=== PATIENT | female | born 1965 | race Caucasian/White ===

== ENCOUNTER → 2016-11-01 | Outpatient (CLI) | payer OTHER ==
--- NOTE | 2016-11-01 17:02 | REPMRS ---
Patient History The patient states she has not had a clinical breast exam in over a year. Family history of prostate cancer in father at age 78 and breast cancer in maternal cousin at age 40. Priors done at [facility] Digital Mammo Screening Bilat: November 01, 2016 - Exam #: [id number] Bilateral CC and MLO view(s) were taken. Technologist: Shonda Avila, Technologist FINDINGS: There are scattered fibroglandular densities. There has been no change in the appearance of the mammogram from the prior studies. There is a mild amount of residual fibroglandular tissue which is fairly symmetric. There is no interval development of dominant mass, architectural distortion, or clustered microcalcification suggestive of malignancy. ASSESSMENT: BI-RADS/ACR category 1 mammogram. Negative. Recommendation Routine screening mammogram in 1 year (for women over age 40). This mammogram was interpreted with the aid of an FDA-approved computer-aided dectection system. Electronically Signed By: Martin Snow MD 11/01/16 [id number]
== END ==
LOC: M RAD 15:55
PROVIDERS: ATTEND Internal Medicine
DX: Z12.31 Encounter for screening mammogram for malignant neoplasm of breast (principal)

== ENCOUNTER 2018-08-27 09:20 | Inpatient (IN) | payer OTHER ==
--- NOTE | 2018-08-21 22:37 | HPE ---
DATE OF ADMISSION: 08/27/2018 CHIEF COMPLAINT: Cervical degenerative disk disease and radiculopathy. HISTORY OF PRESENT ILLNESS: This is a pleasant 52-year-old female with progressively worsening neck and left upper extremity pain. She has failed to improve with conservative treatment. She has elected for surgery for her continued symptoms. She has pain with her activities of daily living. Magnetic Resonance Imaging (MRI) of the cervical spine showed degenerative disk disease and impingement of the nerve roots at C5-6 and 6-7. She has consented for an anterior cervical decompression and fusion at C5-[address] Anderson Tellez. No medical optimization was requested. ALLERGIES: AMBIEN, VICODIN, BACTRIM CURRENT MEDICATIONS: - omeprazole 20 mg a day - ibuprofen 100 mg three times a day as needing - gabapentin 800 mg three times a day - vitamin D3 5000 units a day - Lovaza once a day - ferrous sulfate 325 mg a day - cetirizine 10 mg a day - metformin 500 mg twice a day - oyster shell calcium with D 500 mg every day - multivitamin every day - biotin 7500 mcg every day - Flexeril 10 mg as needed - Lidoderm patch 5% as needed - Voltaren gel as needed PAST MEDICAL HISTORY INCLUDES: Polycystic ovary syndrome (PCOS), acid reflux and iron-deficiency anemia. PAST SURGICAL HISTORY INCLUDES: Lymph node removal, bone spur removal from the right heel and neck surgery on the right, Watson-en-Y gastric bypass. SOCIAL HISTORY: She does work on [employer]. She does not smoke and rarely drinks alcohol. FAMILY HISTORY: Noncontributory. REVIEW OF SYSTEMS: This patient denies chest pain, heart palpitations, cough, wheezing, difficulty breathing and shortness of breath. She denies abdominal pain, nausea, vomiting, diarrhea or constipation. She denies recent upper respiratory infection or urinary tract infection symptoms. She does complain of persistent neck pain and left upper extremity radiculopathy. PHYSICAL EXAMINATION: General: She is well-nourished, well-developed in no acute distress, alert female. She has pain and stiffness in the neck with decreased range of motion and radiculopathy in the left upper extremity. Vital signs: She is 5 feet eight, weighs 260 pounds with a temperature of 98.8. Neck was supple without adenopathy or jugular venous distension. There were no carotid bruits appreciated upon auscultation. Lungs were clear to auscultation without rales or wheeze throughout. Heart: Regular rate and rhythm. Abdomen: Bowel sounds were present. Extremities: Examination of the neck revealed intact skin. LABORATORY DATA: None requested. IMPRESSION: Cervical degenerative disk disease at C5-6 and 6-7with chronic left upper extremity radiculopathy. PLAN: Consented for anterior cervical decompression and fusion at C5-[address] Anderson Tellez.
[2018-08-27] VITALS (7 sets, daily range): BP systolic 139–175; BP diastolic 78–95
[~2018-08-27] VITALS: Ht 170.2 cm; Wt 117.9 kg
[~2018-08-27 09:20] MED LIST: BIOT7500 PO; CALC-235 PO; CETI10CH PO; CYCL10TA PO; FERR325T3 PO; GABA800T4 PO; GABAPENTIN 400 MG CAP PO ONE; GLUC500T PO; IBUP1TAB7 PO; LIDO5DIS41 TD; LIDOCAINE 1% MDV 20ML VIAL SQ PRN; LOVA1CAP17 PO; LR 1,000 ML IV ONE; MULT1TAB10 PO; OMEP20CA3 PO; PERCOCET 5MG/325MG TAB PO ONE; VITA100067 PO; VOLT1GEL15 TD; ceFAZolin SOD 1 GM in D5W MINI-BAG PLUS 50 ML IV ONE
[2018-08-27 09:56] LABS: HEMATOCRIT 40.9 % (36.0-47.0); HEMOGLOBIN 13.1 g/dl (12.0-15.5); MEAN CORPUSCULAR HEMOGLOBIN 26.5 pg (27.0-33.0); MEAN CORPUSCULAR VOLUME 82.8 fl (80.0-96.0); PLATELET COUNT, AUTOMATED 331 10^3/uL (150-450); RED BLOOD COUNT 4.94 10^6/uL (4.00-5.40); WHITE BLOOD COUNT 9.8 10^3/uL (4.0-10.0)
[2018-08-27] MEDS ORDERED: LIDOCAINE W/EPINEPHRINE 1% 20ML VIAL As Ordered ONE (09:58)
[2018-08-27] MEDS ORDERED: BACITRACIN PWD 50,000 UNITS VIAL As Ordered ONE (09:58)
[2018-08-27] MEDS ORDERED: THROMBIN SOLN 20,000 UNITS KIT As Ordered ONE (09:58)
[2018-08-27] MEDS ORDERED: methylPREDNISolone 500 MG VIAL (J2930) As Ordered ONE (09:59)
[2018-08-27 10:14] LABS: URINE PREG TEST NEGATIVE (NEGATIVE)
[2018-08-27] MEDS ORDERED: LIDOCAINE 2% INJ 100 MG/5 ML SDV (FOR ANES.) As Ordered ONE (13:29)
[2018-08-27] MEDS ORDERED: MIDAZOLAM INJ 2 MG/2 ML VIAL (J2250) As Ordered ONE (13:29)
[2018-08-27] MEDS ORDERED: dexameTHASONE 4 MG/ML 1ML VIAL (J1100) As Ordered ONE (13:29)
[2018-08-27] MEDS ORDERED: SUGAMMADEX SODIUM 500 MG/5 ML VIAL (BRIDION) As Ordered ONE (13:29)
[2018-08-27] MEDS ORDERED: fentaNYL 250 MCG/5 ML INJECTION (J3010) As Ordered ONE (13:29)
[2018-08-27] MEDS ORDERED: ePHEDrine SULFATE 25 MG/5 ML(5MG/ML) SYRINGE As Ordered ONE (13:29)
[2018-08-27] MEDS ORDERED: ONDANSETRON 4MG/2ML VIAL (J2405) As Ordered ONE (13:29)
[2018-08-27] MEDS ORDERED: PROPOFOL 200 MG/20 ML VIAL As Ordered ONE (13:29)
[2018-08-27] MEDS ORDERED: ROCURONIUM BROMIDE 50 MG/5 ML VIAL As Ordered ONE (13:29)
[2018-08-27] MEDS ORDERED: PHENYLephrine HCL 500 MCG/5 ML (100MCG/ML) SYRINGE (J2370) As Ordered ONE (13:29)
[2018-08-27] MEDS ORDERED: LR 1,000 ML IV SCH (14:00)
[2018-08-27] MEDS ORDERED: PERCOCET 5MG/325MG TAB PO PRN ×2 (14:00→14:15)
[2018-08-27] MEDS ORDERED: fentaNYL 100 MCG/2 ML INJECTION (J3010) IV PRN (14:00)
[2018-08-27] MEDS ORDERED: ONDANSETRON 4MG/2ML VIAL (J2405) IV PRN (14:00)
[2018-08-27] MEDS ORDERED: MORPHINE 10 MG/ML 1ML VIAL (J2270) IV PRN (14:15)
[2018-08-27] MEDS ORDERED: PROMETHAZINE INJ 25 MG/ML VIAL (J2550) IV PRN (14:15)
[2018-08-27] MEDS ORDERED: HYDROMORPHONE HCL 0.5 MG/ 0.5 ML SYRINGE (J1170 PER 1) IV PRN (14:15)
[2018-08-27] MEDS ORDERED: CYCLOBENZAPRINE 10 MG TAB PO PRN (14:15)
[2018-08-27] MEDS ORDERED: D5W/LR 1,000 ML IV SCH (14:15)
[2018-08-27] MEDS ORDERED: METF-881 PO (14:55)
[2018-08-27] MEDS: PERCOCET 5MG/325MG TAB PO PRN (15:07)
--- NOTE | 2018-08-27 15:18 | REP ---
Clinical: Intraoperative positioning. Technique: Portable cross-table view of the cervical spine. Findings: Endotracheal tube and nasogastric tube are identified. Probe via anterior approach at the C4-5 level. Electronically Signed by Monico Tran MD 08/27/2018 03:09 P
--- NOTE | 2018-08-27 15:25 | RO ---
DATE OF PROCEDURE: 08/27/2018 PREOPERATIVE DIAGNOSIS: Left upper extremity radiculopathy secondary to disk bulge at C5-6 and degenerative changes in the cervical spine. POSTOPERATIVE DIAGNOSIS: Left upper extremity radiculopathy secondary to disk bulge at C5-6 and degenerative changes in the cervical spine. PROCEDURE PERFORMED: Includes anterior cervical decompression and fusion procedure including removal of disk material posterior longitudinal ligament and the decompression of the thecal sac and nerve roots, preparation of endplate. Application of structural allograft for spine surgery, application of the anterior cervical instrumentation C5-6. Modifier 22 appended to this procedure for the following several leaves 1. The patient's body mass index of 41 resulted in increased time required to accomplish the surgical procedure. 2. The patient's history of previous neck surgery for lymph node dissection resulted in additional time needed to be the procedure because of was significantly scarred operative field. 3. The patient past history gastric bypass surgery. There seemed to be increased scarring and adhesions in the cervical field, could be related to reflux or other issues. SURGEON: Dr. Tellez ARCHITECT INTERNSHIP: Matt Knight, physician farm assistant. ANESTHESIA: General endotracheal. ESTIMATED BLOOD LOSS: Less than 30 mL replaced with crystalloid. COMPLICATIONS: No complications. INDICATION: This is a 52-year-old woman with significant left upper extremity radicular discomfort and MRI evidence of disk disease. She has failed conservative management and elected for operative intervention. Consent reviewed in detail including pepe discussion of the pathology involved the procedure proposed, alternatives including doing nothing and risks including not limited to pain, failure, need for additional surgery, swallowing trouble, hoarseness, nerve injury, paralysis, infection and other issues. Next, the patient also had significant spondylosis at the C6-7 level. This level was not addressed. It was felt the patient has no motion there with a bridging osteophyte and no significant spinal stenosis or foraminal stenosis at C6-7. Next, components used included the [employer] skyline plate 12 mm with 15 mm 4-5 screws times four. Structural graft size 5 x 7. OPERATIVE COURSE: Identified in the holding area, site side verified brought to the operating room, anesthesia was administered. Mr. Mckeonkevin assisted with positioning this included a bump between the shoulder blades taking shoulders at the side, applying head halter traction 7 pounds. Once I and the premium note interest calculator clerk were comfortable with the patient's positioning she was sterilely prepped and draped in usual fashion for exposure of cervical spine. Mr. Knight stood on the patient's left side. I stood on the patient's right side. The incision was outlined with a marking pen based on palpation of landmarks in the midportion of the cervical spine. The incision was infiltrated with 1% lidocaine with epinephrine and then I made the incision using a 10 blade knife. I did utilize 3.5 loupe magnification for the procedure. Next, we dissected down to the surface of the platysma. We encountered significant scarring from the subdermal layer down. I elevated the platysma utilized bipolar cautery and divided with tenotomy scissors. Next we continued to encounter significant fibrotic and scar tissue identified the omohyoid. We continued the dissection superiorly to the omohyoid bipolar cautery was utilized for hemostasis. Eventually we were able to identify the carotid sheath and continued dissection to the surface of the prevertebral fascia which was elevated to the prevertebral fascia seem to be somewhat thickened. It was elevated. Mr. Knight utilized S retractors to help retract the prevertebral fascia. I exposed disk annulus complex. I placed a bayonet spinal needle and we obtained a cross-table lateral. We erred on placement of the spinal needle at that time because of the patient's body habitus so that we would be able to correctly predict which level we were had obtained. A cross-table lateral x-ray revealed the spinal needle was at the 4-5 disk space. Next, based on this position. We marked the vertebral body inferior to the spinal needle with a hot knife and then removed the spinal needle and then continued the dissection exposing the C5-6 level. Next, longus coli muscle was elevated at its medial borders and we were able to placed the shadow line retractor exposing. Distraction pins were placed across C5-6 and we appreciated significant motion at C5-6. Annulus was opened with an 11 blade knife. Disk material was removed using pituitaries, endplates removed using 3-0 curved Prolene curette. Once this was accomplished I then utilized the oval bur to further implement the diskectomy and removing portions of the inferior and superior endplate continuing dissection posteriorly towards the uncinate processes which were hypertrophic and exposing the posterior longitudinal ligament. Next, once this was accomplished I did utilize a 5 x 7 rasp to further to prepare endplate and we placed a 5 x7 sound which seemed to fit appropriately. Next, at this stage, I elevated the PLL using curved 4-0 curette. I then utilized the #1 Kerrison followed by #2 Kerrison to remove the posterior longitudinal ligament expose the thecal sac. There did seem to be significant hard disk material posteriorly and especially to the left. Next, once this was removed carefully using Kerrison's, we inspected. No active bleeding was appreciated. We irrigated. Next, I again rasped further contour the endplates and then I utilized 5 x 7 to again predict that the correct side we obtained a 5 x 7 graft. We soak the graft in bacitracin solution and then installed the graft. It was tamped into place. I then removed the distraction pins and plugged the pin holes using bone wax. Next, Mr. Knight utilized S retractors to help expose the anterior osteophyte which I then removed using the oval bur contouring the anterior vertebral bodies to receive the plate. Next, once this was accomplished I selected the size 12 mm plate which fit appropriately and I drilled and placed the appropriate 15 mm screws which were secured and the locking device engaged. Next we obtained a second cross-table lateral x-ray which reflected the screws at the C5 level placed appropriately, somewhat limited due to body habitus but adequate. Next, once this was accomplished we verified the locking devices were engaged. We irrigated including irrigation with concentrated bacitracin. All retractors were removed. Platysma was reapproximated with interrupted stitch, deep dermis with interrupted stitch and Monocryl. Dermabond utilized on skin. Rigid cervical collar placed. The patient was then extubated and moved to the recovery in good condition. For further details please refer to the medical record.
[2018-08-27] MEDS ORDERED: HumaLOG INSULIN (NovoLOG) PER UNIT SC SCH ×2 (17:30→21:00)
[2018-08-27] MEDS: GABAPENTIN 400 MG CAP PO SCH ×2 (17:35→20:38)
[2018-08-28 02:00] VITALS: BP 158/84
[2018-08-28] MEDS: PERCOCET 5MG/325MG TAB PO PRN (02:10)
[2018-08-28 06:00] VITALS: BP 124/69
[2018-08-28] MEDS: GABAPENTIN 400 MG CAP PO SCH (08:42)
[2018-08-28] MEDS ORDERED: CETIRIZINE (ZyrTEC) 10 MG TAB PO SCH (09:00)
[2018-08-28] MEDS ORDERED: OMEPRAZOLE 20 MG CAP PO SCH (09:00)
[2018-08-28] MEDS ORDERED: METAMUCIL (PSYLLIUM) PACKET PO SCH (09:00)
[2018-08-28] MEDS ORDERED: metFORMIN XR 500MG TAB *GLUCOPHAGE XR PO SCH (09:00)
[2018-08-28 10:00] VITALS: BP 133/73
--- NOTE | 2018-08-30 12:14 | DSES ---
DATE OF ADMISSION: 08/27/2018 DATE OF DISCHARGE: 08/28/2018 DISCHARGE DIAGNOSIS: Cervical degenerative disk disease and left upper extremity radiculopathy status post anterior cervical decompression and fusion (ACDF) of C5-6. HISTORY: This is a 52-year-old female with progressively worsening cervical degenerative disk disease and pain with left upper extremity radiculopathy. She had failed to improve with conservative treatment. She elected for surgery for her continued symptoms. PROCEDURE PERFORMED: Anterior cervical decompression and fusion at C5-6. HOSPITAL COURSE: The patient was admitted on the day of surgery and underwent ACDF of C5-6 that was without complications. Afterwards, her hospital course was without complications. On the day of discharge, the patient was doing well. She will wear an [place] collar for approximately 30 days postoperatively. She will use oral medications for pain control. Also, she will follow in the office in 2 weeks for wound check.
== END 2018-08-28 12:45 | disposition home or self-care (01) | DRG 473 ==
LOC: M OR 09:20 → M MS5PR 15:15
PROVIDERS: ADMIT Orthopaedic Surgery; ATTEND Orthopaedic Surgery
PROC: 0RB30ZZ Excision of Cervical Vertebral Disc, Open Approach (ICD-10-PCS; 2018-08-27)
PROC: 0RG10K0 Fusion of Cervical Vertebral Joint with Nonautologous Tissue Substitute, Anterior Approach, Anterior Column, Open Approach (ICD-10-PCS; principal; 2018-08-27 11:00)
DX: M50.122 Cervical disc disorder at C5-C6 level with radiculopathy (principal); M50.123 Cervical disc disorder at C6-C7 level with radiculopathy; E28.2 Polycystic ovarian syndrome; K21.9 Gastro-esophageal reflux disease without esophagitis; D50.9 Iron deficiency anemia, unspecified; Z79.84 Long term (current) use of oral hypoglycemic drugs; Z79.899 Other long term (current) drug therapy; Z98.84 Bariatric surgery status

== ENCOUNTER 2019-02-07 20:26 | Emergency (ER) | payer OTHER ==
[~2019-02-07] VITALS: Ht 170.2 cm; Wt 118.2 kg
[~2019-02-07 20:26] MED LIST changes: -GABAPENTIN 400 MG CAP PO ONE; -LIDOCAINE 1% MDV 20ML VIAL SQ PRN; -LR 1,000 ML IV ONE; +METF-881 PO; -OMEP20CA3 PO; +OMEP20CA4 PO; -PERCOCET 5MG/325MG TAB PO ONE; -ceFAZolin SOD 1 GM in D5W MINI-BAG PLUS 50 ML IV ONE
--- NOTE | 2019-02-07 22:00 | REPVR ---
EXAM: US Duplex Bilateral Lower Extremity Veins EXAM DATE/TIME: 02/07/2019 9:44 PM CLINICAL HISTORY: 53 years old, female; Pain; Leg, upper; Bilateral TECHNIQUE: Imaging protocol: Real-time duplex ultrasound of the Bilateral Lower Extremities with 2-D gomez scale, color Doppler flow and spectral waveform analysis with image documentation. Complete exam focused on the bilateral lower extremity veins. COMPARISON: No relevant prior studies available. FINDINGS: Right deep veins: Unremarkable. The common femoral, femoral, proximal profunda femoral and popliteal veins are patent without thrombus. Normal Doppler waveforms. Normal compressibility and/or augmentation response. Right superficial veins: Saphenofemoral junction is patent without thrombus. Left deep veins: Unremarkable. The common femoral, femoral, proximal profunda femoral and popliteal veins are patent without thrombus. Normal Doppler waveforms. Normal compressibility and/or augmentation response. Left superficial veins: Saphenofemoral junction is patent without thrombus. Soft tissues: Unremarkable. IMPRESSION: No sonographic evidence of deep vein thrombosis. Electronically signed by: Matt Wren On 02/07/2019 22:00:11 PM
[2019-02-07 23:06] VITALS: BP 155/87
== END 2019-02-07 23:14 | disposition home or self-care (01) ==
LOC: M ED 20:26
DX: M16.0 Bilateral primary osteoarthritis of hip (principal); M17.0 Bilateral primary osteoarthritis of knee; M19.071 Primary osteoarthritis, right ankle and foot; M19.072 Primary osteoarthritis, left ankle and foot; M76.811 Anterior tibial syndrome, right leg; M76.812 Anterior tibial syndrome, left leg; M77.32 Calcaneal spur, left foot; Z88.2 Allergy status to sulfonamides; Z88.5 Allergy status to narcotic agent; Z88.8 Allergy status to other drugs, medicaments and biological substances; Z79.899 Other long term (current) drug therapy; Z79.84 Long term (current) use of oral hypoglycemic drugs

== ENCOUNTER → 2019-11-18 | Outpatient (CLI) | payer OTHER ==
[~2019-11-18] MED LIST changes: +BIOT1CAP2 PO; +CALC1TAB30 PO; +CELE1CAP4 PO; +CYCL-707 PO; -CYCL10TA PO; +MAGN400C PO; +MULTCAP PO; +OMEP1CAP73 PO; -OMEP20CA4 PO; +VITAD1000T PO
== END ==
LOC: M LABSMTC 11:30
PROVIDERS: ATTEND Anesthesiology
DX: Z01.818 Encounter for other preprocedural examination (principal); Z11.59 Encounter for screening for other viral diseases
CPT/HCPCS: C9803; U0002

== ENCOUNTER 2019-11-20 10:08 | Day surgery (SDC) | payer OTHER ==
[~2019-11-20] VITALS: Ht 170.2 cm; Wt 125.5 kg
[2019-11-20] MEDS: NS 1,000 ML IV ONE (07:00)
[~2019-11-20 10:08] MED LIST changes: +LIDOCAINE 2% 100MG/5ML SDV (FOR ANES.) As Ordered ONE; +propofoL 200 MG/20 ML VIAL As Ordered ONE
--- NOTE | 2019-11-20 11:45 | ROOR ---
Patient Name: Stefany Perdue Procedure Date: 11/20/2019 11:24 AM Date of : 1965 Age: 53 Room: [facility] Gender: Female Note Status: Finalized Procedure: Total Colonoscopy to Cecum Indications: Screening for colorectal malignant neoplasm Providers: Samuel Parker MD Referring MD: HAKAN MCCLENDON MD Requesting Provider: Medicines: Monitored Anesthesia Care Complications: No immediate complications. Procedure: Pre-Anesthesia Assessment: - The heart rate, respiratory rate, oxygen saturations, blood pressure, adequacy of pulmonary ventilation, and response to care were monitored throughout the procedure. The Colonoscope was introduced through the anus and advanced to the cecum, identified by appendiceal orifice and ileocecal valve. The colonoscopy was performed without difficulty. The patient tolerated the procedure well. The quality of the bowel preparation was excellent. Findings: The perianal and digital rectal examinations were normal. Non-bleeding internal hemorrhoids were found during retroflexion. The hemorrhoids were small and Grade I (internal hemorrhoids that do not prolapse). No other significant abnormalities were identified in a careful examination of the remainder of the colon. The exam was otherwise without abnormality on direct and retroflexion views. Impression: - Non-bleeding internal hemorrhoids. - The examination was otherwise normal on direct and retroflexion views. - No specimens collected. - The exam was otherwise normal to the cecum. Recommendation: - Patient has a contact number available for emergencies. The signs and symptoms of potential delayed complications were discussed with the patient. Return to normal activities tomorrow. Written discharge instructions were provided to the patient. - High fiber diet. - Discharge patient to home. - Continue present medications. - Repeat colonoscopy in 10 years for screening purposes. - Return to referring physician. - The findings and recommendations were discussed with the patient's family. Samuel Parker MD Samuel Parker MD 11/20/2019 11:45:12 AM Electronically signed by Samuel Parker MD Number of Addenda: 0 Note Initiated On: 11/20/2019 11:24 AM Estimated Blood Loss: Estimated blood loss: none.
[2019-11-20 13:02] VITALS: BP 158/88
== END 2019-11-20 12:25 | disposition home or self-care (01) ==
LOC: M OPP 10:08
PROVIDERS: ATTEND Internal Medicine Gastroenterology
DX: Z12.11 Encounter for screening for malignant neoplasm of colon (principal); K64.0 First degree hemorrhoids; K21.9 Gastro-esophageal reflux disease without esophagitis; Z79.84 Long term (current) use of oral hypoglycemic drugs; Z79.899 Other long term (current) drug therapy; Z88.2 Allergy status to sulfonamides; Z88.5 Allergy status to narcotic agent; Z88.8 Allergy status to other drugs, medicaments and biological substances

== ENCOUNTER 2021-03-04 18:10 | Emergency (ER) | payer OTHER ==
[~2021-03-04] VITALS: Ht 170.2 cm; Wt 118.4 kg
[~2021-03-04 18:10] MED LIST changes: +D31000TA2 PO; -LIDOCAINE 2% 100MG/5ML SDV (FOR ANES.) As Ordered ONE; -VITAD1000T PO; -propofoL 200 MG/20 ML VIAL As Ordered ONE
[2021-03-04] MEDS ORDERED: IBUP-1114 PO (18:38)
[2021-03-04] MEDS ORDERED: AUGMENTIN 875 MG TAB PO ONE (21:20)
[2021-03-04] MEDS ORDERED: FLON1SPR NARES (21:21)
[2021-03-04] MEDS ORDERED: AUGM875T28 PO (21:21)
[2021-03-04 21:48] VITALS: BP 146/91
== END 2021-03-04 21:49 | disposition home or self-care (01) ==
LOC: M ED 18:10
DX: J31.0 Chronic rhinitis (principal); Z79.84 Long term (current) use of oral hypoglycemic drugs; Z79.899 Other long term (current) drug therapy; Z88.2 Allergy status to sulfonamides; Z88.1 Allergy status to other antibiotic agents; Z88.5 Allergy status to narcotic agent; Z88.8 Allergy status to other drugs, medicaments and biological substances; Z98.84 Bariatric surgery status

== ENCOUNTER → 2021-10-11 | Outpatient (CLI) | payer OTHER ==
[~2021-10-11] MED LIST changes: +AUGM875T28 PO; -D31000TA2 PO; +FLON1SPR NARES; +IBUP-1114 PO; +VITA100093 PO
== END ==
LOC: M WHC 15:01
PROVIDERS: ATTEND Family Medicine
DX: Z12.31 Encounter for screening mammogram for malignant neoplasm of breast (principal); Z80.42 Family history of malignant neoplasm of prostate; Z80.3 Family history of malignant neoplasm of breast

== ENCOUNTER → 2022-12-26 | Outpatient (CLI) | payer OTHER | LOC: M WHC 15:13 | PROVIDERS: ATTEND Family Medicine | DX: Z12.31 Encounter for screening mammogram for malignant neoplasm of breast (principal) ==

== ENCOUNTER → 2024-07-22 | Outpatient (CLI) | payer OTHER ==
[~2024-07-22] MED LIST changes: +GABA-1635 PO; -GABA800T4 PO
== END ==
LOC: M WHC 15:23
PROVIDERS: ATTEND Nurse Practitioner Primary Care
DX: Z12.31 Encounter for screening mammogram for malignant neoplasm of breast (principal)

== ENCOUNTER → 2024-08-08 | Outpatient (CLI) | payer OTHER | LOC: M RADPRO 13:23 | PROVIDERS: ATTEND Physician Assistant | DX: J98.6 Disorders of diaphragm (principal) ==

== ENCOUNTER → 2024-09-25 | Outpatient (CLI) | payer OTHER | LOC: M RAD 14:45 | PROVIDERS: ATTEND Physician Assistant | DX: R06.00 Dyspnea, unspecified (principal); J98.6 Disorders of diaphragm ==

== ENCOUNTER → 2024-10-24 | Outpatient (CLI) | payer OTHER ==
[~2024-10-24] MED LIST changes: +METHACHOLINE KIT (6 VIAL.NEB PREMIX) INH ONE
== END ==
LOC: M CARPUL 14:38
PROVIDERS: ATTEND Physician Assistant
DX: R06.00 Dyspnea, unspecified (principal)
CPT/HCPCS: 94070; 95070; J7674